=== PATIENT | female | born 1965 | race Caucasian/White ===

== ENCOUNTER 2016-11-24 00:57 | Day surgery (SDC) | payer OTHER ==
[~2016-11-24] VITALS: Ht 154.9 cm; Wt 87.0 kg
[~2016-11-24 00:57] MED LIST: ASPI-973 PO; CHOL3000 PO; CYAN250010 PO; DIPH25CA6 PO; FLAX100038 PO; LEVO112T3 PO; PHEN-617 PO; [UNRECOGNIZED DRUG - CODE] PO
[2016-11-24 08:50] VITALS: BP 110/79; PULSE 61; RESP 16; O2SAT 98
[2016-11-24 08:55] VITALS: BP 119/77; PULSE 66; RESP 16; O2SAT 98
[2016-11-24 09:00] VITALS: BP 122/81; PULSE 69; RESP 16; O2SAT 99
[2016-11-24 09:05] VITALS: BP 123/73; PULSE 71; RESP 16; O2SAT 96
--- NOTE | 2016-11-24 09:35 | NUR ---
Phlebotomy Pt tolerated phlebotomy well, VSS throughout. Ferritin 63, HCT 37.7 pt exp symtoms. Direct order to phlebotomize After 1 attempt to left arm, IVT started L A/C.
== END 2016-11-24 23:59 | disposition home or self-care (01) ==
LOC: MOCO 00:57
PROVIDERS: ATTEND Internal Medicine Hematology & Oncology
DX: E83.119 Hemochromatosis, unspecified (principal)